=== PATIENT | male | born 1960 | race Caucasian/White ===

== ENCOUNTER → 2020-02-03 10:55 | Outpatient (BNVA) | payer OTHER, SELFPAY | PROVIDERS: PCP Internal Medicine; Visit Provider Internal Medicine | DX: J44.9 Chronic obstructive pulmonary disease, unspecified (principal); Z79.899 Other long term (current) drug therapy; Z87.891 Personal history of nicotine dependence | CPT/HCPCS: 99202 ==

== ENCOUNTER → 2020-04-21 10:37 | Outpatient (BNVA) | payer OTHER, SELFPAY | PROVIDERS: PCP Internal Medicine; Visit Provider Internal Medicine ==

== ENCOUNTER 2020-06-20 10:00 | Outpatient (REF) | payer OTHER, SELFPAY ==
--- NOTE | 2020-06-20 11:43 | PFT_ITS ---
INDICATION: COPD. SPIROMETRY: The FEV1 to FVC of 32% with an FEV1 of 1.08 L, which is 26% predicted, and an FVC of 3.37 L, which is 62% predicted. Post bronchodilators, there was a significant improvement of the FVC by 15% and of the FEV1 by 26%. The maximum voluntary ventilation 25% predicted. LUNG VOLUMES: Total lung capacity 109% predicted with a residual volume 231% predicted. DIFFUSION CAPACITY: DLCO 53% predicted. COMPARISONS: None available. INTERPRETATION: There is an obstructive ventilatory defect consistent with very severe COPD. There was a significant response to bronchodilators noted. The patient has a severe decrease in maximum voluntary ventilation secondary to deconditioning and also elevated heart rate and worsening dynamic inspiratory capacity. Lung volumes demonstrate significant air trapping due to the COPD and a moderate diffusion impairment secondary to emphysema and also need to consider underlying pulmonary vascular conditions. Clinical correlation warranted. Pranav Ybarra MD MR/MODL / [id number]
== END 2020-06-20 10:01 | disposition home or self-care (01) ==
LOC: HO.RESP 10:00
PROVIDERS: PCP Internal Medicine; Visit Provider Internal Medicine
DX: J44.9 Chronic obstructive pulmonary disease, unspecified (principal)
CPT/HCPCS: 94060; 94727; 94729

== ENCOUNTER 2020-08-11 12:56 | Outpatient (REF) | payer OTHER, SELFPAY ==
[2020-08-11 14:03] LABS: Hematocrit 51.7 % (42-52); Hemoglobin 17.2 g/dl (14.0-18.0)
[2020-08-11 14:14] LABS: Estimated Average Glucose 298 mg/dL
[2020-08-11 14:32] LABS: Alanine Aminotransferase 33 U/L (0-40); Albumin Level 4.4 g/dL (3.5-5.0); Alkaline Phosphatase 123 U/L (39-117); Anion Gap 16 (12-20); Aspartate Amino Transferase 16 U/L (5-37); Bilirubin Total 0.7 mg/dL (0.0-1.0); Blood Urea Nitrogen 9 mg/dL (9-16); Calcium 10.1 mg/dL (8.4-10.2); Carbon Dioxide 30 mmol/L (22-29); Chloride 95 mmol/L (96-108); Estimated Glomerular Filt Rate > 60; Glucose Random 407 mg/dL (60-115); Potassium 4.6 mmol/L (3.3-5.1); Sodium 136 mmol/L (135-145); Total Protein 7.7 g/dL (6.5-8.0)
[2020-08-11 15:01] LABS: TSH reflex Free T4 0.66 uIU/mL (0.32-4.0)
[2020-08-12 05:37] LABS: LDL Cholesterol Direct 110 mg/dL (<100)
== END 2020-08-11 12:57 | disposition home or self-care (01) ==
LOC: HO.HMGCLDS 12:56
PROVIDERS: PCP Internal Medicine; Visit Provider Internal Medicine
DX: F41.1 Generalized anxiety disorder (principal); E13.9 Other specified diabetes mellitus without complications; J44.9 Chronic obstructive pulmonary disease, unspecified; R80.9 Proteinuria, unspecified; J02.9 Acute pharyngitis, unspecified
CPT/HCPCS: 36415; 80053; 82043; 83036; 83721; 84443; 85014; 85018

== ENCOUNTER → 2020-10-13 09:04 | Outpatient (BNVA) | payer OTHER, SELFPAY | PROVIDERS: PCP Internal Medicine; Visit Provider Internal Medicine | DX: J44.9 Chronic obstructive pulmonary disease, unspecified (principal); F41.9 Anxiety disorder, unspecified; R06.02 Shortness of breath; Z87.891 Personal history of nicotine dependence | CPT/HCPCS: 99212 ==

== ENCOUNTER 2020-12-09 13:50 | Outpatient (REF) | payer OTHER, SELFPAY ==
--- NOTE | ~2020-12-09 | CT_ITS ---
EXAMINATION: CT CHEST SCREENING CLINICAL INFORMATION: Personal history of nicotine dependence. COMPARISON: None. TECHNIQUE: Multidetector volumetric CT imaging of the chest is performed without contrast using low-dose technique. Additional 2-D coronal and sagittal reformatted images and axial 3-D maximum intensity projection (MIP) images are generated on the CT workstation. This CT examination was performed using dose optimization techniques as appropriate, variously including the following: *Automated exposure control *Adjustment of mA and/or kV according to patient size (this includes techniques or standardized protocols for targeted exams where dose is matched to indication/reason for exam; i.e. extremities or head) *Use of iterative reconstruction technique DLP: 49 mGy-cm FINDINGS: LUNGS: There is centrilobular emphysema without acute process. There is a 3 mm nodule along the left superior major fissure axial image 122/6, 6 mm nodule right upper lobe axial image 205/6, 5 mm nodule along the left major fissure, and focal atelectatic changes in the right middle lobe and lingula. MEDIASTINUM: The thyroid lobes are symmetric and normal. The central trachea and the bronchi are widely patent. Heart size and the great vessels are normal caliber. No pericardial effusion seen. PLEURA: There is a posterior left pleural-based partially calcified plaque measuring 1.2 cm on axial image 14/5. AXILLA: No abnormal axillary lymph nodes seen. The chest wall is unremarkable. UPPER ABDOMEN: The visualized liver, spleen, pancreas, and bilateral adrenal glands are unremarkable. OSSEOUS STRUCTURES: No lytic or sclerotic process seen. CT/CT lung screening IMPRESSION: Bilateral pulmonary nodules, as described above. The largest 5 mm nodule is in the left major fissure. ASSESSMENT: Lung-RADS category 3: Probably Benign, Benign. RECOMMENDATION: Low-dose 6-month CT chest.
== END 2020-12-09 13:51 | disposition home or self-care (01) ==
LOC: HO.CT 13:50
PROVIDERS: PCP Internal Medicine; Visit Provider Physician Assistant Medical
DX: Z12.2 Encounter for screening for malignant neoplasm of respiratory organs (principal); Z87.891 Personal history of nicotine dependence
CPT/HCPCS: 71271; G0296

== ENCOUNTER → 2020-12-13 09:41 | Outpatient (BNVA) | payer OTHER, SELFPAY | PROVIDERS: PCP Internal Medicine; Visit Provider Internal Medicine | DX: J44.9 Chronic obstructive pulmonary disease, unspecified (principal); R09.02 Hypoxemia; Z99.81 Dependence on supplemental oxygen | CPT/HCPCS: 99212 ==

== ENCOUNTER → 2021-02-20 08:23 | Outpatient (BNVA) | payer OTHER, SELFPAY | PROVIDERS: PCP Internal Medicine; Visit Provider Anesthesiology | DX: M47.816 Spondylosis without myelopathy or radiculopathy, lumbar region (principal); M54.50 Low back pain, unspecified; G89.29 Other chronic pain; G89.4 Chronic pain syndrome; E11.42 Type 2 diabetes mellitus with diabetic polyneuropathy; R09.02 Hypoxemia | CPT/HCPCS: 99202 ==

== ENCOUNTER → 2021-04-12 11:06 | Outpatient (BNVA) | payer OTHER, SELFPAY | PROVIDERS: PCP Internal Medicine; Visit Provider Anesthesiology | DX: M47.816 Spondylosis without myelopathy or radiculopathy, lumbar region (principal); M54.50 Low back pain, unspecified; M51.36 Other intervertebral disc degeneration, lumbar region; G89.29 Other chronic pain; E11.42 Type 2 diabetes mellitus with diabetic polyneuropathy; R09.02 Hypoxemia | CPT/HCPCS: 99212 ==

== ENCOUNTER → 2021-04-27 10:55 | Outpatient (BNVA) | payer OTHER, SELFPAY | PROVIDERS: PCP Internal Medicine; Visit Provider Internal Medicine | DX: J44.9 Chronic obstructive pulmonary disease, unspecified (principal); R09.02 Hypoxemia; Z99.81 Dependence on supplemental oxygen; Z87.891 Personal history of nicotine dependence | CPT/HCPCS: 99212 ==

== ENCOUNTER → 2021-07-12 12:29 | Outpatient (BNVA) | payer OTHER, SELFPAY | PROVIDERS: PCP Internal Medicine; Visit Provider Dietitian, Registered | DX: E13.9 Other specified diabetes mellitus without complications (principal); Z71.3 Dietary counseling and surveillance | CPT/HCPCS: 97802 ==

== ENCOUNTER → 2022-01-17 10:07 | Outpatient (BNVA) | payer OTHER, SELFPAY | PROVIDERS: PCP Internal Medicine; Visit Provider Internal Medicine | DX: J44.9 Chronic obstructive pulmonary disease, unspecified (principal); R09.02 Hypoxemia; F41.1 Generalized anxiety disorder | CPT/HCPCS: 99212 ==

== ENCOUNTER → 2022-06-19 08:30 | Outpatient (BNVA) | payer OTHER, SELFPAY | PROVIDERS: PCP Internal Medicine; Visit Provider Internal Medicine | DX: J44.9 Chronic obstructive pulmonary disease, unspecified (principal); R09.02 Hypoxemia; F41.1 Generalized anxiety disorder; Z87.891 Personal history of nicotine dependence | CPT/HCPCS: 99212 ==

== ENCOUNTER 2023-05-08 09:43 | Outpatient (AMB) | payer SELFPAY ==
[2023-05-08 10:07] VITALS: BP 142/78; PULSE 87; O2SAT 97; BMI 25.3
--- NOTE | 2023-05-08 10:07 | A.OFFVIS_ITS ---
Intake Vital Signs 05/08/23 10:07 Height 6 ft Weight 186 lb 4.65 oz BMI 25.3 BP 142/78 H Blood Pressure Location Lt brachial Position Sitting Pulse 87 Pulse Source Pulse Oximeter Pulse Oximetry (%) 97 Oxygen Delivery Method Nasal Cannula Oxygen Flow Rate 2 Intake Visit Reasons: COPD Intake Note: pt is here for follow up and states he is using oxygen during the day when going out doors and at home as needed. [place]arfinger Chief Required: No Allergies lisinopril Allergy (Severe, Verified 05/08/23 10:19) Rash/Hives Medication List - Last Reconciled 05/08/23 by Virginia Vogel MD albuterol sulfate 90 mcg/actuation 2 puffs inhalation Q4-6H PRN 30 days blood sugar diagnostic (HYLT AviationStyle Lite Strips) patient to check blood sugar once daily blood-glucose meter (HYLT AviationStyle Lite Meter kit) patient to check blood sugar once daily Breo Ellipta 200-25 mcg/dose (fluticasone furoate-vilanterol) 1 ea PO DAILY NS dulaglutide (Trulicity) 3 mg subcut QWEEK flash glucose scanning reader ([employer] [place] 14 Day [place]) Patient to check blood sugar once daily flash glucose sensor (HYLT [employer]Style [place] 14 Day Sensor kit) Patient to check blood sugar once daily gabapentin 300 mg PO TID insulin degludec (Tresiba FlexTouch U-100 insulin) units subcut lancets (FreeStyle Lancets) Patient to check blood sugar once daily nystatin 1 appl topical DAILY 30 days pioglitazone 45 mg PO DAILY 90 days tiotropium bromide (Spiriva with HandiHaler) 1 cap inhalation DAILY Ventolin HFA 90 mcg/actuation (albuterol sulfate) 2 puffs inhalation Q4H PRN NS Do you need a note to return to daycare/school/sports/work: No HPI COPD HPI Details 62 years old gentleman with severe obstr uctive airway disorder, and hypoxemia. Comes after. 6 months for his routine follow-up Breathing dale has remained stable, without any acute infection or exacerbation. He continues to use his regular inhalers, and uses albuterol once in a while. Denies smoking. His main complaint is ongoing intermittent cough some sneezing and also he gets back pain. His main interest today was for me to prescribe some pain medication. He came with portable unit and he uses 2 L/minute all the time. He is benefiting from the use of oxygen. [facility] Medical History Disc degeneration, lumbar Chronic pain syndrome Diabetic polyneuropathy Spondylosis of lumbar spine Hydronephrosis On home O2 Personal history of nicotine dependence Exercise hypoxemia Anxiety, generalized COPD (chronic obstructive pulmonary disease) Microalbuminuria Renal calculi Diabetes 1.5, managed as type 2 Surgical History History of ureter stent History of lithotripsy Family History Father Diabetes mellitus HTN (hypertension) History of heart attack Smoker Mother Pancreatic cancer Maternal Grandfather No problems noted. Maternal Grandmother No problems noted. Paternal Grandfather No problems noted. Paternal Grandmother No problems noted. Brother No problems noted. Brother No problems noted. Brother No problems noted. Sister No problems noted. Sister No problems noted. Son No problems noted. Son No problems noted. Son No problems noted. Daughter No problems noted. Social History Housing: House Alcohol intake: current Alcohol intake frequency: does not drink Patient Tobacco Use Status: Former Tobacco user Tobacco use type: Cigarette e-Cigarette/Vaping Use: Never Used service: No Current occupational status: employed Cognitive needs: No Hearing needs: No Vision needs: No Review of Systems Const All systems reviewed & are unremarkable except as noted in HPI and below (ALSO REVIEWED [facility]) Eyes Reports no additional complaints ENT Reports nasal congestion (Mild intermittent) Card Denies chest pain, Denies irregular heart rhythm and Denies leg edema Resp Reports as per HPI GI Reports no additional complaints Reports no additional complaints Musc Reports back pain and Reports myalgias Skin/Breast Reports system reviewed and no additional complaints, except as documented Neuro Reports no additional complaints Psych Reports no additional complaints Physical Exam Vital Signs: Last Vital Signs Pulse 87 05/08/23 10:07 BP 142/78 H 05/08/23 10:07 Pulse Ox 97 05/08/23 10:07 Oxygen Delivery Method Nasal Cannula 05/08/23 10:07 Oxygen Flow Rate 2 05/08/23 10:07 BMI result Body Mass Index 25.3 Const General: comfortable, no acute distress, alert and awake Orientation/consciousness: patient oriented x3 HEENT Head: Yes normal to inspection General nose exam: No nasal polyps present and No nasal discharge present Face and sinus: Yes sinuses nontender Mouth: oropharynx normal Throat: Yes posterior oropharynx normal Eyes General: appearance normal, both eyes and all related structures Neck Neck: Yes normal visual inspection, Yes no lymphadenopathy, Yes trachea midline and Yes no JVD Thyroid: Thyroid normal Chest Chest palpation & inspection: normal inspection of the chest, normal palpation of entire chest wall and no tenderness Resp Other: Percussion note hyper-resonant, breath sounds are distant with prolonged expiratory phase. No wheezes rhonchi or crepitations are heard . Cardio Palpation: normal PMI Rate: regular rate Rhythm: regular rhythm Heart sounds: no gallops and no murmurs GI Palpation (GI): Soft to palpation, nontender, No hepatosplenomegaly present and no masses Auscultation: normal bowel sounds Back/Spine/Pelvis Thoracic/Lumbar Spine: thoracic and lumbar spine normal to inspection and thoraco-lumbar ROM limited Skin General skin exam: no rashes or lesions noted Neuro General: patient oriented x3 and no focal motor deficits Cranial nerves: Yes CN's II-XII intact bilaterally Extrem General: Yes normal to inspection, Yes no clubbing, cyanosis or edema and Yes no calf tenderness Psych Appearance: grossly normal and well kempt Speech and movement: Normal speech and movement present Assessment & Plan Assessment & Plan (1) COPD (chronic obstructive pulmonary disease): Comment: (Severe COPD - significant response to BD on PFT done 06/20/20) Holding stable, but gets short of breath on minimal effort. Has been using albuterol frequently . Code(s): J44.9 - Chronic obstructive pulmonary disease, unspecified Plan: TX: Breo 200-25 1 inhalation daily Spiriva HandiHaler 1 inhalation daily ProAir 2 puffs Q 4-6 hours only p.r.n. (2) Personal history of nicotine dependence: Comment: THANK GOD HE QUIT SMOKING ALMOST TWO YEARS AGO AND HAS NOT GONE BACK TO SMOKING YET. Code(s): Z87.891 - Personal history of nicotine dependence Plan: Commended for not going back to smoking (3) On home O2: Comment: He has chronic hypoxemia with minimal exercise. He does have home oxygen, uses 2-4 L/minute p.r.n. with any exertion. He also uses 2 L/minute p.r.n. if he becomes anxious. He does use portable O2, 2 L/minute . And is benefiting from its use Code(s): Z99.81 - Dependence on supplemental oxygen Plan: Advised to continue using O2 2 L/minute with any physical activity and going outdoors. Also use O2 2 L/minute p.r.n. if he experiences shortness of breath at home. Coding Level of Care Code Est Pt Level 3 (34717) Diagnoses COPD (chronic obstructive pulmonary disease) J44.9 Personal history of nicotine dependence Z87.891 On home O2 Z99.81
== END 2023-05-08 10:30 | disposition home or self-care (01) ==
PROVIDERS: PCP Internal Medicine; Visit Provider Internal Medicine
DX: J44.9 Chronic obstructive pulmonary disease, unspecified (principal); Z87.891 Personal history of nicotine dependence; Z99.81 Dependence on supplemental oxygen
CPT/HCPCS: 99213

== ENCOUNTER → 2023-05-08 09:43 | Outpatient (BNVA) | payer OTHER, SELFPAY | PROVIDERS: PCP Internal Medicine; Visit Provider Internal Medicine ==

== ENCOUNTER 2024-08-05 10:41 | Outpatient (AMB) | payer OTHER, SELFPAY ==
[2024-08-05 10:45] VITALS: BP 130/64; PULSE 107; O2SAT 100; BMI 25.0
--- NOTE | 2024-08-05 10:45 | A.OFFVIS_ITS ---
Vital Signs 08/05/24 10:45 Height 6 ft Weight 184 lb 1.376 oz BMI 25.0 BP 130/64 Blood Pressure Location Lt brachial Position Sitting Pulse 107 H Pulse Source Pulse Oximeter Pulse Oximetry (%) 100 Oxygen Delivery Method Nasal Cannula Oxygen Flow Rate 3 Intake Visit Reasons: copd Intake Note: pt is here for follow up and would like to try for a poc and he does feel short of breath in the shower with oxygen. Plating Inspector Required: No Allergies lisinopril Allergy (Severe, Verified 08/05/24 10:51) Rash/Hives HPI HPI copd: Details: 63 YEARS OLD GENTLEMAN IS A KNOWN CASE OF ADVANCED CHRONIC OBSTRUCTIVE PULMONARY DISEASE DUE TO HIS PAST SMOKING. HE IS COMING FOR FOLLOW-UP AFTER ABOUT A YEAR, CONTINUES TO USE BREO ELLIPTA 200-25 1 INHALATION DAILY AND SPIRIVA HANDIHALER 1 INHALATION DAILY ALONG WITH ALBUTEROL HFA P.R.N.. HE IS ON SUPPLEMENTAL OXYGEN 24 HOURS A DAY. CLAIMS THAT HIS BREATHING HAS BEEN SAME AND STABLE BUT HE DOES GET SHORT OF BREATH ON MINIMAL EXERTION, EVEN IN THE HOUSE AND ESPECIALLY WHEN HE TRIES TO WALK OUTDOORS. LUCKILY HE HAS HAD NO ACUTE EXACERBATION. HE QUIT SMOKING IN 2020. HE DID GO FOR LDCT 1 TIME, 2020, AND WAS SUPPOSED TO HAVE FOLLOW-UP CT SCAN BUT HE DID NOT SHOW UP . [facility] Medical History (Updated 08/05/24 @ 12:08 by Virginia Vogel MD) Physical deconditioning Disc degeneration, lumbar Chronic pain syndrome Diabetic polyneuropathy Spondylosis of lumbar spine Hydronephrosis On home O2 Personal history of nicotine dependence Exercise hypoxemia Anxiety, generalized COPD (chronic obstructive pulmonary disease) Microalbuminuria Renal calculi Diabetes 1.5, managed as type 2 Surgical History History of ureter stent History of lithotripsy Family History Father Diabetes mellitus HTN (hypertension) History of heart attack Smoker Mother Pancreatic cancer Maternal Grandfather No problems noted. Maternal Grandmother No problems noted. Paternal Grandfather No problems noted. Paternal Grandmother No problems noted. Brother No problems noted. Brother No problems noted. Brother No problems noted. Sister No problems noted. Sister No problems noted. Son No problems noted. Son No problems noted. Son No problems noted. Daughter No problems noted. Social History Housing: House Alcohol intake: current Alcohol intake frequency: does not drink Patient Tobacco Use Status: Former Tobacco user Tobacco use type: Cigarette e-Cigarette/Vaping Use: Never Used service: No Current occupational status: employed Cognitive needs: No Hearing needs: No Vision needs: No Review of Systems Const All systems reviewed & are unremarkable except as noted in HPI and below (ALSO REVIEWED [facility]) Eyes Reports no additional complaints ENT Reports nasal congestion (Mild intermittent) Card Denies chest pain, Denies irregular heart rhythm and Denies leg edema Resp Reports as per HPI GI Reports no additional complaints Reports no additional complaints Musc Reports back pain and Reports myalgias Skin/Breast Reports system reviewed and no additional complaints, except as documented Neuro Reports no additional complaints Psych Reports no additional complaints Physical Exam Vital Signs: Last Vital Signs Pulse 107 H 08/05/24 10:45 BP 130/64 08/05/24 10:45 Pulse Ox 100 08/05/24 10:45 Oxygen Delivery Method Nasal Cannula 08/05/24 10:45 Oxygen Flow Rate 3 08/05/24 10:45 BMI result Body Mass Index 25.0 Const General: comfortable, no acute distress, alert and awake Orientation/consciousness: patient oriented x3 HEENT Head: Yes normal to inspection General nose exam: No nasal polyps present and No nasal discharge present Face and sinus: Yes sinuses nontender Mouth: oropharynx normal Throat: Yes posterior oropharynx normal Eyes General: appearance normal, both eyes and all related structures Neck Neck: Yes normal visual inspection, Yes no lymphadenopathy, Yes trachea midline and Yes no JVD Thyroid: Thyroid normal Chest Chest palpation & inspection: normal inspection of the chest, normal palpation of entire chest wall and no tenderness Resp Other: Percussion note hyper-resonant, breath sounds are distant with prolonged expiratory phase. No wheezes rhonchi or crepitations are heard . Cardio Palpation: normal PMI Rate: regular rate Rhythm: regular rhythm Heart sounds: no gallops and no murmurs GI Palpation (GI): Soft to palpation, nontender, No hepatosplenomegaly present and no masses Auscultation: normal bowel sounds Back/Spine/Pelvis Thoracic/Lumbar Spine: thoracic and lumbar spine normal to inspection and thoraco-lumbar ROM limited Skin General skin exam: no rashes or lesions noted Neuro General: patient oriented x3 and no focal motor deficits Cranial nerves: Yes CN's II-XII intact bilaterally Extrem General: Yes normal to inspection, Yes no clubbing, cyanosis or edema and Yes no calf tenderness Psych Appearance: grossly normal and well kempt Speech and movement: Normal speech and movement present Office Procedures 6 Minute Walk Time:: 11:30 SPO2 % at rest: 97 Pulse at rest: 97 SPO2 % during excercise: 93 Pulse during excercise: 160 SPO2 % after excercise: 95 Pulse after excercise: 115 Distance in yards walked: 200 Luke Score: 6 Performance Observations:: Larry walked on level ground unassisted, he walked on room air for the entire walk. He maintained his SPO2 93-96%, no supplemental O2 needed. HR increased to 160bpm at 4 mins of walking, MD notified. HR recovered to 115 with a brief rest. 60892 - 6 Minute Walk Spirometry Testing Spirometry Comments: Spirometry done in the office, Dr. Vogel has the results results scanned to his chart. 81009- Spirometry Results Reviewed Results Reviewed: SPIROMETRY TODAY FVC=35 % FEV1= 19 % FEF 25-75 = 11 % C/W VERY SEVERE OBSTRUCTIVE AIRWAY DISORDER 6 INUTES WALK TEST : PATIENT WALKED FOR 6 MINUTES WITHOUT OXYGEN, AND O2 SAT REMAINED ABOVE 90%, HE GOT SHORT OF BREATH AND TIRED AND HEART RATE WAS ABOVE 100 . SO HE DID NOT QUALIFY FOR POC, OR EVEN FOR THE REGULAR O2 UNIT. Assessment & Plan Assessment & Plan (1) COPD (chronic obstructive pulmonary disease): Comment: (Severe COPD - significant response to BD on PFT done 06/20/20) Holding stable, but gets short of breath on minimal effort. Has been using albuterol frequently . DURING HIS 6 MINUTES WALK TEST HE DID NOT SHOW ANY SIGNIFICANT O2 DESATURATIONS, BUT HIS HEART RATE GETS VERY FAST, Code(s): J44.9 - Chronic obstructive pulmonary disease, unspecified Category: Medical Plan: HAD A DETAILED DISCUSSION WITH HIM EXPLAINED ABOUT HIS LEVEL OF COPD. EXPLAINED THAT HE IS NOT GOING TO NEED POC, HE DOES HAVE DECONDITIONING. I THINK HE WILL DO BETTER TO GO TO PULMONARY REHAB PROGRAM. (2) Personal history of nicotine dependence: Comment: THANK GOD HE QUIT SMOKING ALMOST THREE YEARS AGO AND HAS NOT GONE BACK TO SMOKING YET. Code(s): Z87.891 - Personal history of nicotine dependence Category: Medical Plan: STRESSED THAT HE SHOULD NOT AND CAN NOT GO BACK TO SMOKING. HE SHOULD CONTINUE TO HAVE ANNUAL LUNG SCAN . (3) On home O2: Comment: He has chronic hypoxemia with minimal exercise. He does have home oxygen, uses 2-4 L/minute p.r.n. with any exertion. He also uses 2 L/minute p.r.n. if he becomes anxious. He does use portable O2, 2 L/minute . And is benefiting from its use. Wanted to be checked for a POC , but actually did not qualify for this. Code(s): Z99.81 - Dependence on supplemental oxygen Category: Medical Plan: Explained to him that hypoxemia is not any serious issue at this time. He should use O2 2 L/minute during his sleep. He can use O2 2 L/minute only p.r.n. for anxiety and for shortness of breath on walking. (4) Anxiety, generalized: Comment: In addition to his advanced COPD, he also has history of anxiety syndrome. Code(s): F41.1 - Generalized anxiety disorder Category: Medical Plan: Explained to him thoroughly and told him that COPD is optimally controlled that this time. He needs to relax and do deep breathing exercises. He can use O2 2 L/minute p.r.n. for any acute attacks of anxiety and or shortness of breath. (5) Physical deconditioning: Comment: Patient complained of getting short of breath on minimal exertion. This is not due to lack of O2. He also gets tachycardiac very easily I think he is quite deconditioned. Code(s): R53.81 - Other malaise Category: Medical Plan: Patient is being referred for pulmonary rehab program to build his endurance. Orders: Orders AMB 6 minute walk Today J44.9 - Chronic obstructive pulmonary disease, unspecified AMB Spirometry Testing Today J44.9 - Chronic obstructive pulmonary disease, unspecified Pulmonary Rehab Today F41.1 - Generalized anxiety disorder, J44.9 - Chronic obstructive pulmonary disease, unspecified, R09.02 - Hypoxemia, R53.81 - Other malaise, Z99.81 - Dependence on supplemental oxygen Coding Level of Care Code Est Pt Level 4 (58349) Diagnoses COPD (chronic obstructive pulmonary disease) J44.9 Personal history of nicotine dependence Z87.891 On home O2 Z99.81 Anxiety, generalized F41.1 Physical deconditioning R53.81 CPT Codes Coding ([id number]) Spirometry - CPT: 40220- Spirometry ([id number])
[2024-08-05 11:42] VITALS: PULSE 97; O2SAT 97
--- OUTSIDE RECORDS SUMMARY | 2024-08-05 11:44 | XMS_ITS | Clinical Summary ---
Author Organization Formerly [facility] Address [address] [place] [address] Care Team Providers Care Heating And Ventilation Engineer Name Role Phone Unavailable Primary Care Provider Unavailabl e Social History Tobacco Use Types Packs/Day Years Used Date Smoking Tobacco: Never Assessed Sex and Gender Information Value Date Recorded Sex Assigned at Not on file Legal Sex Male 2:38 PM EDT Gender Identity Not on file Sexual Orientation Not on file Plan of Treatment Health Maintenance Due Date Last Done Comments Hepatitis C Virus Screening 1960 HIV Screening 12/06/1975 DTaP/Tdap/Td Vaccines (1 - Tdap) 1981 Pneumococcal Vaccines 50+ (1 of 1 - PCV) 2012 Zoster (Shingles) Vaccine (1 of 2) 2012 COVID-19 Vaccine ( - 2023-2 5 season) 2023 RSV Vaccine 60 years and old er and Patients (1 - 1-dose 75+ series) 2037 Hepatitis B Vaccines Aged Out No long er eligible based on patient's age to complete this topic
== END 2024-08-05 11:40 | disposition home or self-care (01) ==
LOC: HO.HPS 10:41
PROVIDERS: PCP Internal Medicine; Visit Provider Internal Medicine
DX: J44.9 Chronic obstructive pulmonary disease, unspecified (principal); Z87.891 Personal history of nicotine dependence; Z99.81 Dependence on supplemental oxygen; F41.1 Generalized anxiety disorder; R53.81 Other malaise
CPT/HCPCS: 94010; 94618; 99214

== ENCOUNTER → 2024-08-05 10:41 | Outpatient (BNVA) | payer OTHER, SELFPAY | PROVIDERS: PCP Internal Medicine; Visit Provider Internal Medicine | DX: J44.9 Chronic obstructive pulmonary disease, unspecified (principal); F41.1 Generalized anxiety disorder; R53.81 Other malaise; R09.02 Hypoxemia; Z87.891 Personal history of nicotine dependence; Z99.81 Dependence on supplemental oxygen | CPT/HCPCS: 94010; 94618; 99212 ==